=== PATIENT | female | born 1960 | race Caucasian/White ===

== ENCOUNTER 2017-06-09 07:35 | Day surgery (SDC) | payer SELFPAY ==
[2017-06-09 07:54] VITALS: BMI 24.4
[2017-06-09] MEDS ORDERED: Propofol 10 mg/ml Inj (20 ML) ONE (09:15)
[2017-06-09] MEDS ORDERED: Lactated Ringer's 500 ML IV SCH (09:30)
[2017-06-09 09:58] VITALS: TEMP 96.2; O2SAT 100
[2017-06-09 10:45] VITALS: BP 112/70; PULSE 74; RESP 12
== END 2017-06-09 10:50 | disposition home or self-care (01) ==
LOC: C.ENDO 07:35
PROVIDERS: ATTEND Internal Medicine Gastroenterology
DX: Z12.11 Encounter for screening for malignant neoplasm of colon (principal); K64.2 Third degree hemorrhoids
CPT/HCPCS: 45378; J2704; J7120